=== PATIENT | male | born 1990 | race Caucasian/White ===

== ENCOUNTER 2018-06-20 17:44 | Emergency (ER) | payer OTHER ==
[2018-06-20] MEDS ORDERED: Ondansetron ODT TAB* 4 MG PO ONE (18:08)
[2018-06-20] MEDS ORDERED: NS 0.9% 1000 ML** 1,000 ML IV ONE (18:08)
--- NOTE | 2018-06-20 18:10 | ED ---
Abdominal Pain/Male - HPI Summary HPI Summary: This patient is a 27 year old M presenting to [facility] upon referral from [facility] with a chief complaint of RLQ abd pain since 4 days ago. The patient reports that [place] sent him here for a CT scan to rule out septic infection. The patient rates the pain 6/10 in severity. Symptoms aggravated by nothing. Symptoms alleviated by nothing. Patient reports nausea, vomiting, dizziness, CASTRO , sinus congestion, lose, dark diarrhea, myalgias and chills. Patient denies fever. Patient notes that he has been unable to eat or drink water. Patient has hx H. pylori x3, meningitis, brain tumor (as a child), depression, and hernia repair. Patient notes that he smokes marijuana. - History of Current Complaint Chief Complaint: EDAbdPain Stated Complaint: FLU LIKE SYMPTOMS PER PT Time Seen by Provider: 06/20/18 18:01 Hx Obtained From: Patient Onset/Duration: Gradual Onset, Lasting Days - 4 days, Still Present Timing: Constant Severity Initially: Moderate Severity Currently: Moderate Pain Intensity: 6 Pain Scale Used: 0-10 Numeric Location: Discrete At: RLQ Radiates: No Aggravating Factor(s): Nothing Alleviating Factor(s): Nothing Associated Signs And Symptoms: Positive: Dizzy, Decreased Appetite, Nausea, Vomiting, Diarrhea, Other - chills, myalgias, and sinus congestion. Negative: Fever - Allergies/Home Medications Allergies/Adverse Reactions: Allergies Allergy/AdvReac Type Severity Reaction Status Date / Time No Known Allergies Allergy Verified 04/04/14 12:37 PMH/Surg Hx/FS Hx/Imm Hx GI History: Reports: Other GI Disorders - hx hernia repair, H. pylori x3 Neurological History: Reports: Other Neuro Impairments/Disorders - hx brain tumor (when young), meningitis Psychiatric History: Reports: Hx Depression Denies: Hx Eating Disorder - Surgical History Surgery Procedure, Year, and Place: hernia repair, 1999 (in [place]) Infectious Disease History: No Infectious Disease History: Denies: Traveled Outside the [place] in Last 30 Days - Family History Known Family History: Negative: Diabetes - Social History Alcohol Use: Rare Substance Use Type: Reports: Marijuana Substance Use Comment - Amount & Last Used: 6-7 bowls a day Smoking Status (MU): Heavy Every Day Tobacco Smoker Type: Cigarettes Review of Systems Positive: Chills. Negative: Fever ENT: Other - sinus congestion Positive: Abdominal Pain - RLQ tenderness, Vomiting, Diarrhea, Nausea Positive: Myalgia Neurological: Other - dizziness Positive: Headache All Other Systems Reviewed And Are Negative: Yes Physical Exam - Summary Physical Exam Summary: VITAL SIGNS: Reviewed. GENERAL: Patient is a well-developed and nourished male who is lying comfortable in the stretcher. Patient is not in any acute respiratory distress. HEAD AND FACE: Normocephalic and atraumatic. EYES: PERRLA, EOMI x 2, No injected conjunctiva. EARS: Hearing grossly intact. Ear canals and tympanic membranes are WNL. MOUTH: Oropharynx within normal limits. NECK: Supple, trachea is midline, no adenopathy, no JVD. CHEST: Symmetric, no tenderness at palpation LUNGS: Clear to auscultation bilaterally. No wheezing or crackles. CVS: RRR, S1 and S2 present, no murmurs or gallops appreciated. ABDOMEN: Soft, RLQ tenderness. No signs of distention. Positive bowel sounds. No rebound no guarding, and no masses palpated. No abdominal bruit or pulsations. EXTREMITIES: FROM in all major joints, no edema, no cyanosis or clubbing. NEURO: Alert and oriented x 3. No acute neurological deficits. Speech is normal. SKIN: Dry and warm Triage Information Reviewed: Yes Vital Signs On Initial Exam: Initial Vitals Temp Pulse Resp BP Pulse Ox 98.5 F 89 18 128/81 98 06/20/18 17:47 06/20/18 17:47 06/20/18 17:47 06/20/18 17:47 06/20/18 17:47 Vital Signs Reviewed: Yes Diagnostics - Vital Signs Vital Signs Temp Pulse Resp BP Pulse Ox 06/20/18 17:47 98.5 F 89 18 128/81 98 - Laboratory Result Diagrams: 06/20/18 18:15 06/20/18 18:15 Lab Statement: Any lab studies that have been ordered have been reviewed, and results considered in the medical decision making process. - CT CT Abd/Pelvis CT Interpretation Completed By: Radiologist Summary of CT Findings: 1. The appendix is unremarkable. 2. No other acute CT pathology. Dr. Kelly has reviewed this report. Abdominal Pain Male Course/Dx - Course Assessment/Plan: Patient is a 27-year-old male who presents to the emergency department with a chief complaint of having right lower quadrant pain. Blood work without any significant abnormality except for AST of 56. Urinalysis negative for UTI, influenza A and B is negative. Abdominal pelvic CT impression : The appendix is unremarkable. In the ED course after the patient was given IV fluids and Zofran symptoms have resolved. The patient is able to tolerate oral fluids without any nausea and vomiting. Therefore the patient will be discharged home with follow-up with PCP. Patient is hemodynamically stable alert oriented 3. All questions were answered and is no further concerns. - Diagnoses Provider Diagnoses: Nausea, vomiting and diarrhea, Lower abdominal pain Discharge - Sign-Out/Discharge Documenting (check all that apply): Patient Departure - discharge home Patient Received Moderate/Deep Sedation with Procedure: No - Discharge Plan Condition: Stable Disposition: HOME Prescriptions: Ondansetron TAB* [Zofran 4 MG Tab*] 4 mg PO Q6H PRN #10 tab PRN Reason: Nausea Patient Education Materials: Acute Nausea and Vomiting (ED), Abdominal Pain (ED ) Referrals: Munir Looney MD [Medical Doctor] - 2 Days Additional Instructions: Follow up with your primary care physician in 2-3 days. Return to the emergency department with any new or worsening symptoms. - Billing Disposition and Condition Condition: STABLE Disposition: Home - Attestation Statements Document Initiated by Gregory: Yes Documenting Scribe: Destiny Esqueda Provider For Whom Gregory is Documenting (Include Credential): Tahir Kelly MD Scribe Attestation: Destiny Rogel scribed for Tahir Kelly MD on 06/21/18 at 1025. Scribe Documentation Reviewed: Yes Provider Attestation: The documentation as recorded by the Destiny winn accurately reflects the service I personally performed and the decisions made by , Tahir Kelly MD Status of Scribe Document: Viewed
[2018-06-20 18:24] LABS: ABS Basophils 0 10^3/ul (0-0.2); ABS Eosinophils 0.1 10^3/ul (0-0.6); ABS Lymphocytes 1.6 10^3/ul (1.0-4.8); ABS Monocytes 0.3 10^3/ul (0-0.8); ABS Neutrophils 4.7 10^3/ul (1.5-7.7); ABS Nucleated RBC 0 10^3/ul; Eosinophil % 1.5 %; Hematocrit 46 % (36-46); Hemoglobin 15.9 g/dL (14.0-18.0); Lymphocyte % 23.9 %; Mean Corpuscular HGB Conc 34 g/dL (31-36); Mean Corpuscular Hemoglobin 31 pg (27-31); Mean Corpuscular Volume 91 fL (80-94); Mean Platelet Volume 7.7 fL (7.4-10.4); Nucleated Red Blood Cells % 0.1; Platelet Count 173 10^3/uL (150-450); Red Blood Count 5.09 10^6 /uL (4.18-5.48); Red Cell Distribution Width 13 % (10.5-15); White Blood Count 6.8 10^3/uL (3.5-10.8)
[2018-06-20 18:39] LABS: ALT 56 U/L (7-52); AST 30 U/L (13-39); Albumin 5.1 g/dL (3.2-5.2); Alkaline Phosphatase 62 U/L (34-104); Anion Gap 8 mmol/L (2-11); BUN/Creatinine Ratio 11.3 (8-20); Blood Urea Nitrogen 9 mg/dL (6-24); C Reactive Protein < 1.00 mg/L (<8.01); CO2 Carbon Dioxide 29 mmol/L (22-32); Calcium 9.9 mg/dL (8.6-10.3); Chloride 102 mmol/L (101-111); EGFR African American 141.4 (>60); EGFR Non-African American 116.9 (>60); Globulin 2.5 g/dL (2-4); Glucose 90 mg/dL (70-100); Potassium 3.8 mmol/L (3.5-5.0); Sodium 139 mmol/L (135-145); Total Protein 7.6 g/dL (6.4-8.9)
[2018-06-20] MEDS ORDERED: Iohexol 300* (CONTRAST) 10 ML SDV IV ONE (18:55)
[2018-06-20 19:55] LABS: Influenza A Molecular NEGATIVE (Negative); Influenza B Molecular NEGATIVE (Negative)
[2018-06-20 20:12] LABS: Urine Appearance Clear; Urine Bilirubin Negative (Negative); Urine Blood Negative (Negative); Urine Color Yellow; Urine Glucose Negative (Negative); Urine Ketones Trace (Negative); Urine Nitrite Negative (Negative); Urine Protein Negative (Negative); Urine Specific Gravity 1.004 (1.010-1.030); Urine Urobilinogen Negative (Negative)
[2018-06-20 21:20] VITALS: BP 129/65
== END 2018-06-20 21:29 | disposition home or self-care (01) ==
LOC: ED 17:44
DX: R10.31 Right lower quadrant pain (principal); R11.2 Nausea with vomiting, unspecified; R19.7 Diarrhea, unspecified; R42 Dizziness and giddiness; M79.10 Myalgia, unspecified site; R09.81 Nasal congestion; F17.210 Nicotine dependence, cigarettes, uncomplicated
CPT/HCPCS: 36415; 74177; 80053; 81003; 83605; 83690; 85025; 86140; 87040; 96360; 99283; A9270-GY; Q9967